=== PATIENT | male | born 1970 | race Caucasian/White ===

== ENCOUNTER → 2018-11-09 08:41 | Outpatient (CLI) | payer BC, SELFPAY ==
[2015-11-26 08:30] VITALS: BMI 35.4
[2018-11-09 11:12] LABS: PSA,Total - Annual Screen 0.83 ng/mL (0.00-4.00); Thyroid Stim Hormone (TSH) 2.63 uIU/mL (0.358-3.74)
[2018-11-11 08:41] LABS: Testosterone Free 4.7 pg/mL (6.8-21.5)
== END ==
LOC: MTLAB 08:43
PROVIDERS: Nurse Practitioner Family; Family Provider Family Medicine; PCP Family Medicine; Referring Provider Family Medicine; Visit Provider Family Medicine
DX: R33.9 Retention of urine, unspecified (principal); R53.83 Other fatigue
CPT/HCPCS: 36415; 84153; 84402; 84403; 84443; G0103